=== PATIENT | male | born 1985 | race Hispanic/Latino ===

== ENCOUNTER 2018-04-05 07:39 | Day surgery (SDC) | payer MEDICAID ==
[2018-04-04 14:01] VITALS: BMI 33.0
[2018-04-05] MEDS ORDERED: Insulin Regular 300 UNITS/3 ML VIAL ONE (08:55)
[2018-04-05] MEDS ORDERED: Indocyanine Green 25 MG/10 ML VIAL ONE (08:55)
--- NOTE | 2018-04-05 12:56 | OP ---
PROCEDURE PERFORMED: EGD with dilatation PREPROCEDURE DIAGNOSES: History of oropharyngeal dysphagia, for which he is on a pureed diet at the [facility]. He had an upper GI on 02/18/2018 that showed contrast passing down the esophag us and entering the stomach quickly. There was mild dilatation of the esophagus and stripping waves and the esophagus were decreased. There was no hiatal hernia, paraesophageal hernia or reflux noted. He was sent over to "rule out achalasia". POSTPROCEDURE DIAGNOSES: 1. Mildly dilated esophagus consistent with some esophageal dysmotility. 2. GE junction opened spontaneously. There was no resistance to pass the scope in this region. The re are no signs of inflammation in this region and no evidence endoscopically of achalasia. 3. With regard to the patient's history of oropharyngeal dysphagia, empiric dilatation performed in the upper esophageal sphincter. Second look showed no effect. RECOMMENDATIONS: We may consider PPI if he has overt reflux symptoms. If there are ongoing issues w ith regurgitation or weight loss, he would need a manometry and this would best be performed at the [facility] in [place]. At this time, however, I did not see any clinical or endoscopic features of achalasia. Notably, there are no signs or history of him regurgitating fo od or having weight loss and endoscopically, although his esophagus was somewhat prominent and dilate d. There is no overt evidence of increased lower esophageal sphincter tone. MEDICATIONS: He interfere with esophageal motility, would include his quetiapine, olanzapine, loraze augustus, possibly duloxetine , but those are the medicines that could have issues with esophageal mo tility disorder. To summarize at this time, I would not recommend any further evaluation unless he developed issues wi th repetitive regurgitation or weight loss, then it would be reasonable to consider manometry. ANESTHESIA: TIVA. PROCEDURE IN DETAIL: After the patient informed the risks, benefits, possible complications of endos copy including perforation, reactions to medication and aspiration, informed consent was obtained. T he patient was brought to endoscopy suite where he was sedated in gradual fashion. Once he was comfo rtable, a bite block was placed in the incisural orifice. The endoscope was advanced through the eso phagus, stomach, second and third portion of duodenum. The esophagus showed somewhat prominent dilat ation. There was motility present. There was no retained contents in the esophagus. The GE junctio n was encountered and had a normal appearance and normal Z-line. Scope was advanced beyond this easi ly. This was at 40 cm. Retroflexed views revealed no abnormalities at the GE junction. In the forw calli position, the stomach and duodenum were normal and the third portion. The stomach was desufflate d. The scope was brought back into the esophagus. The ileus could be seen relaxing endoscopically. The scope was removed. The patient's history of oropharyngeal dysphagia, the upper esophageal sphin cter was dilated. Second look showed no evidence of mucosal lacerations or tears. The scope was rem lali. The patient tolerated the procedure well without complications.
[2018-04-05] MEDS ORDERED: PROPOFOL 200 MG/20 ML VIAL ONE (13:45)
[2018-04-05] MEDS ORDERED: Lidocaine 1% PF 5 ML VIAL ONE (13:45)
== END 2018-04-05 12:25 | disposition home or self-care (01) ==
LOC: SDC 07:39
PROVIDERS: ATTEND Internal Medicine Gastroenterology
PROC: 0D758ZZ Dilation of Esophagus, Via Natural or Artificial Opening Endoscopic (ICD-10-PCS; principal; 2018-04-05)
PROC: 0DJ08ZZ Inspection of Upper Intestinal Tract, Via Natural or Artificial Opening Endoscopic (ICD-10-PCS; principal; 2018-04-05)
DX: K22.8 Other specified diseases of esophagus (principal); E11.9 Type 2 diabetes mellitus without complications; E78.00 Pure hypercholesterolemia, unspecified; I10 Essential (primary) hypertension; G47.30 Sleep apnea, unspecified; Z79.4 Long term (current) use of insulin; Z79.899 Other long term (current) drug therapy
CPT/HCPCS: J1815